=== PATIENT | female | born 1965 | race Caucasian/White ===

== ENCOUNTER 2017-12-18 17:29 | Emergency (ER) | payer BC ==
[~2017-12-18] VITALS: Ht 165.1 cm; Wt 98.8 kg
[~2017-12-18 17:29] MED LIST: BACTRIM,SEPT1 TABLET PO; LEXAPRO10 MG PO; MOTRIN800 MG PO; NAPROSYN500 MG PO; REQUIP1 MG PO; SIMVASTATIN PO; SIMVASTATIN10 M1 PO; ULTRAM50 MG PO
[2017-12-18 18:16] LABS: APPEARANCE CLEAR ((CLEAR)); BILIRUBIN NEGATIVE; BLOOD NEGATIVE; COLOR COLORLESS ((YELLOW)); GLUCOSE (STRIP) NEGATIVE; KETONES NEGATIVE; LEUKOCYTES NEGATIVE; NITRITE NEGATIVE; PROTEIN (STRIP) NEGATIVE; SPECIFIC GRAVITY 1.004 (1.000-1.030); UROBILINOGEN 0.2 MG/DL (0.2-1.0)
[2017-12-18 18:43] LABS: HEMATOCRIT 38.1 % (36.0-46.0); HEMOGLOBIN 13.3 G/DL (11.9-15.5); MCH 30.6 PG (29.0-34.0); MCHC 34.9 G/DL (30.0-36.0); MCV 87.6 FL (83-99); PLATELET COUNT 198 K/uL (156-360); RBC DIS.WIDTH-CV 12.3 % (11.8-14.6); RED BLOOD COUNT 4.35 M/uL (3.80-5.20); WHITE BLOOD COUNT 6.1 K/uL (4.1-10.2)
[2017-12-18 18:53] LABS: ALBUMIN 4.4 g/dL (3.2-4.8)
[2017-12-18 18:54] LABS: CHLORIDE 99 mEq/L (99-109); SODIUM 133 mEq/L (136-147)
[2017-12-18 18:56] LABS: GLUCOSE 86 mg/dL (70-99); TOTAL PROTEIN 7.1 g/dL (6.4-8.3)
[2017-12-18 18:58] LABS: TOTAL BILIRUBIN 0.4 mg/dL (0.0-1.0)
[2017-12-18 18:59] LABS: ALKALINE PHOSPHATASE 65 IU/L (3-129)
[2017-12-18 19:00] LABS: CREATININE 0.8 mg/dL (0.6-1.3); GFR ESTIMATE (CALCULATED) > 59 mL/min/
[2017-12-18 19:01] LABS: AST (GOT) 17 IU/L (2-34); UREA NITROGEN (BUN) 16 mg/dL (9-23)
[2017-12-18 19:03] LABS: ALT (GPT) 19 IU/L (3-49); LIPASE 28 U/L (1.0-51.0)
[2017-12-18 19:08] LABS: QUANTITATIVE HCG < 4.0 MIU/ML
[2017-12-18] MEDS ORDERED: ULTRAM50 MG PO (20:58)
[2017-12-18 21:42] VITALS: BP 153/94
== END 2017-12-18 22:19 | disposition home or self-care (01) ==
LOC: EME 17:29
PROVIDERS: Emergency Medicine
DX: R10.31 Right lower quadrant pain (principal); J45.909 Unspecified asthma, uncomplicated; E78.5 Hyperlipidemia, unspecified; K21.9 Gastro-esophageal reflux disease without esophagitis; G25.81 Restless legs syndrome; Z88.8 Allergy status to other drugs, medicaments and biological substances
CPT/HCPCS: 74177; 80053; 81003; 83690; 84702; 85027; 99281; 99284